=== PATIENT | female | born 1970 | race Caucasian/White ===

== ENCOUNTER → 2016-05-17 | Outpatient (CLI) | payer OTHER ==
--- NOTE | 2016-05-19 11:35 | MM ---
Reason for exam: screening (asymptomatic). Last mammogram was performed 2 years and 6 months ago. History: Family history of breast cancer in maternal aunt at age 38. Physical Findings: A clinical breast exam by your physician is recommended on an annual basis and results should be correlated with mammographic findings. MG Screening Mammo w CAD Bilateral CC and MLO view(s) were taken. Prior study comparison: November 08, 2013, bilateral MG screening mammo w CAD. November 06, 2005, bilateral screening mammogram w/CAD. The breast tissue is almost entirely fat. There is no discrete abnormality. ASSESSMENT: Negative, BI-RAD 1 RECOMMENDATION: Routine screening mammogram of both breasts in 1 year.
== END | disposition home or self-care (01) ==
LOC: RADMAMWWP 08:04
PROVIDERS: ATTEND Family Medicine
DX: Z12.31 Encounter for screening mammogram for malignant neoplasm of breast (principal)

== ENCOUNTER → 2016-08-25 | Outpatient (CLI) | payer OTHER ==
--- NOTE | 2016-08-25 08:11 | XR ---
EXAMINATION TYPE: XR tibia fibula RT DATE OF EXAM: 08/25/2016 COMPARISON: NONE HISTORY: Pain and numbness TECHNIQUE: Two views are submitted. FINDINGS: The osseous structures are intact. The joint spaces are preserved. IMPRESSION: 1. No acute osseous abnormality.
--- NOTE | 2016-08-25 08:14 | XR ---
EXAMINATION TYPE: XR foot complete RT DATE OF EXAM: 08/25/2016 COMPARISON: NONE HISTORY: Pain and numbness TECHNIQUE: Three views are submitted. FINDINGS: The osseous structures are intact and mild arthropathy first MTP joint. Calcaneal spur noted. There i s concern for ligamentous or tendinous injury correlate with MRI. There is no acute fracture or disl ocation. IMPRESSION: 1. Plantar calcaneal spur.
== END | disposition home or self-care (01) ==
LOC: RADXRMAIN 07:47
PROVIDERS: ATTEND Family Medicine
DX: M77.31 Calcaneal spur, right foot (principal); M79.671 Pain in right foot

== ENCOUNTER 2016-10-08 00:23 | Emergency (ER) | payer OTHER ==
[2016-10-08 00:31] VITALS: BP 139/80; PULSE 70; RESP 18; TEMP 97.8
[2016-10-08] MEDS ORDERED: TOPICAL SKIN ADHESIVE 1 EACH AMP TOPICAL ONE (00:38)
[2016-10-08] MEDS ORDERED: DIPH,PERTUS(ACELL)TETVAC-LF 0.5 ML VIAL IM ONE (00:38)
--- NOTE | 2016-10-08 00:47 | ED ---
General Adult HPI - General Chief complaint: Wound/Laceration Stated complaint: Thumb Lac Time Seen by Provider: 10/08/16 00:35 Source: patient, RN notes reviewed Mode of arrival: ambulatory Limitations: no limitations - History of Present Illness Initial comments: Patient 46-year-old female who presents emergency room today with chief complaint of laceration to the right thumb. Does admit that she was trying to clean off a ceramic birdhouse to glue and area when it accidentally slipped and cut her posterior aspect of the right thumb. Patient states unsure of her tetanus status. She is close to needing 1. Patient states she has full range of motion. Denies any other complaints associated symptoms. Patient denies any recent fever, chills, shortness of breath, chest pain, back pain, abdominal pain , nausea or vomiting, numbness or tingling, dysuria or hematuria, constipation or diarrhea, headaches or visual changes, or any other complaints. - Related Data Home Medications Medication Instructions Recorded Confirmed ALPRAZolam [Xanax] 0.5 mg PO DAILY PRN 04/25/14 10/08/16 Cholecalciferol (Vitamin D3) 5,000 unit PO DAILY 04/25/14 10/08/16 [Vitamin D3] Riboflavin [Vitamin B-2] 50 mg PO BID 04/25/14 10/08/16 Sertraline [Zoloft] 150 mg PO DAILY 04/25/14 10/08/16 buPROPion SR [Wellbutrin Sr] 150 mg PO BID 04/25/14 10/08/16 Ibuprofen [Motrin] 600 mg PO Q6HR PRN 10/08/16 10/08/16 Allergies Allergy/AdvReac Type Severity Reaction Status Date / Time No Known Allergies Allergy Verified 10/08/16 00:31 Review of Systems ROS Statement: Those systems with pertinent positive or pertinent negative responses have been documented in the HPI. ROS Other: All systems not noted in ROS Statement are negative. Past Medical History Additional Past Medical History / Comment(s): depression/anxiety History of Any Multi-Drug Resistant Organisms: None Reported Past Surgical History: Ablation, Tubal Ligation Additional Past Surgical History / Comment(s): gastric bypass 1995 Past Psychological History: Anxiety, Depression Smoking Status: Never smoker Past Alcohol Use History: Occasional Past Drug Use History: None Reported General Exam - General Exam Comments Initial Comments: General: The patient is awake and alert, in no distress, and does not appear acutely ill. Neck: The neck is supple, there is no tenderness or JVD. Cardiovascular: There is a regular rate and rhythm. No murmur, rub or gallop is appreciated. Respiratory: Lungs are clear to auscultation, respirations are non-labored, breath sounds are equal. No wheezes, stridor, rales, or rhonchi. Musculoskeletal: Full range of motion. Sensation intact. Pulses equal bilaterally 2+. Strength 5/5. Neurological: A&O x 3. CN II-XII intact, There are no obvious motor or sensory deficits. Coordination appears grossly intact. Speech is normal. Skin: 1 cm linear laceration running horizontally to the posterior aspect of right thumb just distal to the DIP joint. Psychiatric: Normal mood and affect. Limitations: no limitations Course Vital Signs 10/08/16 00:28 Temperature 97.8 F Pulse Rate 70 Respiratory 18 Rate Blood Pressure 139/80 O2 Sat by Pulse 100 Oximetry Medical Decision Making - Medical Decision Making Patient's wound irrigated and cleaned here in the emergency room. Wound was approximated and closed with Dermabond. Patient tolerated procedure well. Patient's tetanus updated. Patient advised watch for any signs of infection return for any other concerns. Disposition Clinical Impression: Laceration Disposition: HOME SELF-CARE Condition: Good Instructions: Laceration (ED) Additional Instructions: Please allow the glue to fall off on its own over the next 2-5 days. Please watch for any signs of infection which may include increased pain, swelling, redness, fever or chills. Please return to emergency room for new concerns. Referrals: Asiya Story DO [Primary Care Provider] - 1-2 days Time of Disposition: 00:46
== END 2016-10-08 01:05 | disposition home or self-care (01) ==
LOC: EC 00:23
DX: S61.011A Laceration without foreign body of right thumb without damage to nail, initial encounter (principal); F41.9 Anxiety disorder, unspecified; F32.9 Major depressive disorder, single episode, unspecified; Z23 Encounter for immunization; W26.8XXA Contact with other sharp object(s), not elsewhere classified, initial encounter; Y92.009 Unspecified place in unspecified non-institutional (private) residence as the place of occurrence of the external cause
CPT/HCPCS: 12001; 90471; 90715; 99282

== ENCOUNTER → 2018-09-23 | Outpatient (CLI) | payer OTHER ==
--- NOTE | 2018-09-25 15:41 | MR ---
EXAMINATION TYPE: MR knee LT wo con DATE OF EXAM: 09/23/2018 COMPARISON: Outside radiographs 08/16/2018 HISTORY: 40-year-old female left knee pain Pain in left knee TECHNIQUE: Multiplanar, multisequence imaging of the left knee is performed without IV contrast. FINDINGS: ACL, PCL, MCL, and LCL complex are intact. There is an oblique tear of the posterior horn extending to the body of the medial meniscus. Mild dif fuse thinning of medial compartment articular cartilage with moderate irregular cartilage loss along the mid weightbearing aspect of the joint. There is an inner margin of the tear at the junction of the posterior horn and body of the lateral me niscus. Mild diffuse thinning of articular cartilage volume weight moderate cartilage irregularity al yoan the mid weightbearing aspect. Mild diffuse thinning of patellofemoral compartment articular cartilage with focal areas of moderate irregular cartilage loss along both medial and lateral patellar facets as well as the central portion of the trochlea. Extensor mechanism is intact. Small to moderate knee joint effusion. No sizable Valadez's cyst. Trace e keven Valadez's cyst formation is suggested given minimal fluid in this location. Normal popliteal artery anatomy. Mild generalized muscular atrophy. No suspicious bone marrow replace ment. IMPRESSION: 1. Oblique tear posterior horn extending into the body of the medial meniscus. 2. Additional oblique tear at the junction of the posterior horn and body of the lateral meniscus. 3. Mild tricompartmental osteoarthrosis.
== END | disposition home or self-care (01) ==
LOC: RADMRIMAIN 07:39
PROVIDERS: ATTEND Orthopaedic Surgery
DX: S83.242A Other tear of medial meniscus, current injury, left knee, initial encounter (principal); S83.282A Other tear of lateral meniscus, current injury, left knee, initial encounter; M17.12 Unilateral primary osteoarthritis, left knee

== ENCOUNTER → 2018-10-21 | Outpatient (CLI) | payer OTHER ==
[2018-10-21 13:51] LABS: Basophils % (A) 0 %; Eosinophils # (A) 0.1 k/uL (0-0.7); Eosinophils % (A) 2 %; HCT 39.4 % (34.0-46.0); HGB 12.8 gm/dL (11.4-16.0); Lymphocytes # (A) 1.8 k/uL (1.0-4.8); Lymphocytes % (A) 31 %; MCH 30.2 pg (25.0-35.0); MCHC 32.4 g/dL (31.0-37.0); MCV 93.4 fL (80.0-100.0); Mean Platelet Volume 8.4; Monocytes # (A) 0.3 k/uL (0-1.0); Monocytes % (A) 6 %; Neutrophils # (A) 3.3 k/uL (1.3-7.7); Neutrophils % (A) 59 %; Platelet Count 183 k/uL (150-450); RBC 4.22 m/uL (3.80-5.40); WBC 5.7 k/uL (3.8-10.6)
== END | disposition home or self-care (01) ==
LOC: LABPAT 12:33
PROVIDERS: ATTEND Orthopaedic Surgery
DX: Z01.812 Encounter for preprocedural laboratory examination (principal); M23.92 Unspecified internal derangement of left knee
CPT/HCPCS: 80051; 85025

== ENCOUNTER → 2018-11-05 | Day surgery (SDC) | payer OTHER ==
[2018-11-01 11:52] VITALS: BMI 32.9
--- NOTE | 2018-11-04 10:13 | HP ---
HISTORY AND PHYSICAL CHIEF COMPLAINT: Left knee pain. HISTORY OF PRESENT ILLNESS: The patient is a 48-year-old [employer] who presents with progressive left knee pain for the past 6 months. She notes giving way and locking symptoms. She notes the whole knee is sore. She has tried medications and an injection with only partial temporary relief. She notes it does limit her activities. PAST MEDICAL HISTORY: Significant for depression and hypothyroidism. PAST SURGICAL HISTORY: Significant for left knee arthroscopy x2, appendectomy, tubal ligation. CURRENT MEDICATIONS: 1. Levothyroxine. 2. Wellbutrin. ALLERGIES: She denies drug allergies. FAMILY HISTORY: Family history is significant for cancer. SOCIAL HISTORY: Negative for current tobacco or alcohol use. REVIEW OF SYSTEMS: Sixteen-point review of systems otherwise reviewed and is noncontributory. PHYSICAL EXAMINATION: On examination, the patient is approximately 5 feet 7 inches, 201 foot 7, 201 pounds of endomorphic habitus. HEENT exam is nonfocal. Neck is supple. She has painless passive motion of her left hip. Straight leg raise is negative. Active motion left knee -12 to 115 degrees of flexion. She has a mild effusion. She is tender about the medial greater than lateral joint line. Collaterals are stable, Mark is negative, [place]'s elicits medial pain. Her distal neurovascular exam appears intact in the left lower extremity. MRI report 09/23/2018, left knee shows a posterior medial and posterior lateral meniscal tear. IMPRESSION: Internal derangement left knee with symptomatic medial and lateral meniscal tears. RECOMMENDATIONS: I talked to the patient at length regarding her condition and treatment options. At this point, she is having significant pain and mechanical symptoms despite conservative measures. After thorough discussion, she opts to proceed with surgery. We will plan to proceed with arthroscopic evaluation with possible partial medial and lateral meniscectomy. We will likely perform that as an outpatient procedure. MMODL / IJN: [id number] /
[~2018-11-05] MED LIST: DEXAMETHASONE SOD PHOSPHATE 10 MG/ML 1 ML VIAL IV ONE; EPINEPHrine (PF) 1 ML in SODIUM CHLORIDE 0.9% IRRIGATIO 3,000 ML IRRIGATION ONE; HYDROmorphone (PF) 1 MG/ML ONE; KETOROLAC 30 MG/ML 1 ML VIAL IVP ONE; LACTATED RINGERS 1,000 ML IV SCH; LIDOCAINE 1% 20 ML VIAL (10MG/ML) FOR IV START INTRADERMA ONE; LIDOCAINE 1% 20 ML VIAL (10MG/ML) FOR IV START INTRADERMA PRN; LIDOCAINE 1% INJ 10MG/ML (20 ML MDV) ONE; MIDAZOLAM 2 MG/2 ML VIAL IV PRN; PROPOFOL 10 MG/ML 20 ML VIAL IV ONE; SCOPOLAMINE 1.5MG/72HR PATCH TRANSDERM ONE; fentaNYL (PF) 50 MCG/ML 2 ML AMP ONE
[2018-11-05 07:21] VITALS: RESP 16
[2018-11-05] MEDS: ONDANSETRON 4 MG/2 ML VIAL IVP ONE ×2 (07:46→09:02)
--- NOTE | 2018-11-05 08:48 | P.OP ---
Date of Procedure: 11/05/18 Preoperative Diagnosis: Left knee internal derangement Postoperative Diagnosis: Left knee posterior medial meniscal tear/posterior lateral meniscal tear/grade 3 chondral injury distal medial portion medial femoral condyle Procedure(s) Performed: Left knee arthroscopic partial medial meniscectomy/partial lateral meniscectomy/microfracture medial femoral condyle Anesthesia: MANUELA Surgeon: Krishna Virgen Estimated Blood Loss (ml): 10 Pathology: none sent Condition: stable Disposition: PACU Indications for Procedure: The patient's a 48-year-old female who presents with progressive left knee pain and mechanical symptoms despite conservative measures. A discussion of the risks and benefits of operative intervention versus continued conservative measures was made with the patient. She opted to proceed with surgery. Operative risks to include infection, neurovascular injury, development of blood clots, possible incomplete resolution of symptoms, possible worsening of symptoms and need for subsequent procedures was discussed. Informed consent was obtained. Operative Findings: As below Description of Procedure: The patient was brought to the operating room, and after induction of general anesthesia examined the left knee. Collaterals were stable, Mark was negative, and posterior drawer was negative. The left lower extremity was prepped and draped in a normal fashion. A superior lateral portal was made through a 3 mm skin incision superior and lateral to the patella. This was used for outflow. A lateral portal was made through a 5 mm vertical skin incision lateral to the patella tendon above the joint line. Diagnostic arthroscopy was performed. On inspection of the medial compartment, a longitudinal tear involving the posterior horn of the medial meniscus in the white-white junction was noted. This was debrided back to stable base with straight baskets and a motorized shaver. A grade 3 chondral injury was noted involving the distal medial portion of the medial femoral condyle. Microfracture was performed with a chondral awl reaching the subchondral surface down to the bone marrow elements. On inspection of the notch, the anterior cruciate ligament appeared to be intact. On inspection of the lateral compartment and oblique tear involving the posterior horn of the lateral meniscus in the white-white junction was noted. This was debrided back to stable base with straight baskets and motorized shaver. On inspection of the patellofemoral articulation there were diffuse grade 2 chondral changes however no loose chondral fragments. The gutters were clear debris. The knee was then thoroughly irrigated. The portals were closed with Steri-Strips. A sterile dressing was applied in addition to a compression stocking. The patient was awoken from general anesthesia and t ransferred to recovery room in good condition. Blood loss was estimated at 10 mL. No complications were incurred.
[2018-11-05 08:52] VITALS: TEMP 96.9
[2018-11-05] MEDS: HYDROmorphone 0.5 MG/0.5 ML SYRINGE IVP PRN ×4 (09:02→09:22)
[2018-11-05 11:31] VITALS: BP 109/56; PULSE 62
== END | disposition home or self-care (01) ==
LOC: OR 06:55
PROVIDERS: ATTEND Orthopaedic Surgery
DX: S83.282A Other tear of lateral meniscus, current injury, left knee, initial encounter (principal); S83.242A Other tear of medial meniscus, current injury, left knee, initial encounter; S83.32XA Tear of articular cartilage of left knee, current, initial encounter; X58.XXXA Exposure to other specified factors, initial encounter; F32.9 Major depressive disorder, single episode, unspecified; E03.9 Hypothyroidism, unspecified; F41.9 Anxiety disorder, unspecified; E66.9 Obesity, unspecified; Z68.32 Body mass index [BMI] 32.0-32.9, adult; Z79.890 Hormone replacement therapy; Z79.899 Other long term (current) drug therapy; Z98.51 Tubal ligation status; Z90.49 Acquired absence of other specified parts of digestive tract; Z80.9 Family history of malignant neoplasm, unspecified
CPT/HCPCS: 29880; 29879; J1100; J0690; J2405; J0171; J2001; J3010; J1885; J1170 ×2; J2704

== ENCOUNTER → 2019-08-18 | Outpatient (CLI) | payer MEDICAID ==
[2019-08-18 18:22] LABS: T4, Free (Free Thyroxine) 1.1 ng/dL (0.80-1.80)
== END | disposition home or self-care (01) ==
LOC: LABWHC1 08:13
PROVIDERS: ATTEND Family Medicine
DX: E03.9 Hypothyroidism, unspecified (principal)
CPT/HCPCS: 36415; 82306; 83540; 84439; 84443

== ENCOUNTER → 2019-10-24 | Outpatient (CLI) | payer MEDICAID ==
[2019-10-24 08:33] LABS: Basophils % (A) 0 %; Eosinophils # (A) 0.1 k/uL (0-0.7); Eosinophils % (A) 1 %; HCT 42.5 % (34.0-46.0); HGB 13.8 gm/dL (11.4-16.0); Lymphocytes # (A) 1.4 k/uL (1.0-4.8); Lymphocytes % (A) 28 %; MCHC 32.6 g/dL (31.0-37.0); Mean Platelet Volume 9.3; Monocytes # (A) 0.3 k/uL (0-1.0); Monocytes % (A) 5 %; Neutrophils # (A) 3.3 k/uL (1.3-7.7); Neutrophils % (A) 64 %; Platelet Count 186 k/uL (150-450); RBC 4.62 m/uL (3.80-5.40); WBC 5.1 k/uL (3.8-10.6)
[2019-10-24 16:31] LABS: Albumin 4.3 g/dL (3.80-4.90); Albumin/Globulin Ratio 2.15 (1.60-3.17); Anion Gap 6.6 mmol/L (4.00-12.00); BUN/Creat Ratio 26.67 Ratio (12.00-20.00); Calcium 9.2 mg/dL (8.7-10.3); Carbon Dioxide 26.4 mmol/L (21.6-31.8); Chol/HDL Ratio 2.53; LDL Cholesterol,Calculated 55.2 mg/dL (0.0-131.0); Potassium 4.4 mmol/L (3.5-5.5); Total Bilirubin 0.4 mg/dL (0.2-1.2); Total Protein 6.3 g/dL (6.2-8.2); VLDL Calculation 10.8 mg/dL (5.00-40.00)
== END | disposition home or self-care (01) ==
LOC: LABWHC1 07:16
PROVIDERS: ATTEND Family Medicine
DX: Z00.00 Encounter for general adult medical examination without abnormal findings (principal); E03.9 Hypothyroidism, unspecified
CPT/HCPCS: 36415; 80053; 80061; 82306; 82607; 85025

== ENCOUNTER → 2019-10-25 | Outpatient (CLI) | payer MEDICAID ==
--- NOTE | 2019-10-27 11:40 | MM ---
Reason for exam: screening (asymptomatic). Last mammogram was performed 1 year and 5 months ago. History: Family history of breast cancer in maternal aunt at age 38. Physical Findings: A clinical breast exam by your physician is recommended on an annual basis and results should be correlated with mammographic findings. MG 3D Screening Mammo W/Cad Bilateral CC and MLO view(s) were taken. Prior study comparison: June 07, 2018, bilateral MG screening mammo w CAD. May 17, 2016, bilateral MG screening mammo w CAD. There are scattered fibroglandular densities. No significant changes when compared with prior studies. ASSESSMENT: Negative, BI-RAD 1 RECOMMENDATION: Routine screening mammogram of both breasts in 1 year.
== END | disposition home or self-care (01) ==
LOC: RADMAMWWP 16:15
PROVIDERS: ATTEND Family Medicine
DX: Z12.31 Encounter for screening mammogram for malignant neoplasm of breast (principal)
CPT/HCPCS: 77063; 77067

== ENCOUNTER → 2020-04-11 | Outpatient (CLI) | payer OTHER ==
--- NOTE | 2020-04-11 17:20 | XR ---
EXAMINATION TYPE: XR hand complete LT DATE OF EXAM: 04/11/2020 COMPARISON: NONE HISTORY: Pain TECHNIQUE: 3 views FINDINGS: Metacarpals are intact. I see no fracture nor dislocation. Joint spaces are normal. There a re no erosions. IMPRESSION: Negative left hand exam. No fracture.
--- NOTE | 2020-04-11 17:21 | XR ---
EXAMINATION TYPE: XR wrist complete LT DATE OF EXAM: 04/11/2020 COMPARISON: NONE HISTORY: Pain TECHNIQUE: 4 views FINDINGS: The carpal bones appear intact. There is developmentally short ulna. Radiocarpal joint is i ntact. I see no fracture nor dislocation. There is slight narrowing of the radiocarpal joint space. IMPRESSION: No acute abnormality of the left wrist.
== END | disposition home or self-care (01) ==
LOC: RAD 16:55
PROVIDERS: ATTEND Emergency Medicine
DX: S60.222A Contusion of left hand, initial encounter (principal); S60.212A Contusion of left wrist, initial encounter

== ENCOUNTER → 2020-04-13 | Outpatient (CLI) | payer OTHER ==
--- NOTE | 2020-04-13 10:41 | XR ---
EXAMINATION TYPE: XR shoulder complete LT DATE OF EXAM: 04/13/2020 CLINICAL HISTORY: pain COMPARISON: NONE TECHNIQUE: Three views of the left shoulder are obtained. FINDINGS: There is no acute fracture/dislocation evident. The acromioclavicular and glenohumeral dominguez int spaces appear within normal limits. The visualized ribs are intact and unremarkable. IMPRESSION: 1. There is no acute fracture or dislocation. ICD 10 NO FRACTURE, INITIAL EVALUATION
--- NOTE | 2020-04-13 10:41 | XR ---
EXAMINATION TYPE: XR humerus LT DATE OF EXAM: 04/13/2020 CLINICAL HISTORY: pain TECHNIQUE: Frontal and lateral images of the left humerus are obtained. COMPARISON: None. FINDINGS: There is no acute fracture/dislocation evident. The joint spaces appear within normal limi ts. The overlying soft tissue appears unremarkable. IMPRESSION: There is no acute fracture or dislocation. ICD 10 NO FRACTURE, INITIAL EVALUATION
== END | disposition home or self-care (01) ==
LOC: RADXRMAIN 10:02
PROVIDERS: ATTEND Emergency Medicine
DX: S43.402D Unspecified sprain of left shoulder joint, subsequent encounter (principal)

== ENCOUNTER → 2020-06-12 | Outpatient (CLI) | payer OTHER ==
--- NOTE | 2020-06-12 13:14 | XR ---
EXAMINATION TYPE: XR elbow complete 3 views LT, XR wrist complete 4 views LT, XR forearm 2 views LT DATE OF EXAM: 06/12/2020 COMPARISON: Wrist 04/11/2020 HISTORY: 50-year-old female S53.462 S60.212D slip/fall, pain within the elbow and forearm FINDINGS: Left elbow: No acute fracture, subluxation, or dislocation. Normal joint effusion. Alignment is maintained. Forearm: No acute fracture of the radial or ulnar shaft. Left wrist: There is negative ulnar variance noted. [id number] degenerative change at the distal radioulnar joint with joint space narrowing, subchondral sclerosis, and cystic change. Appearance relatively si milar to the prior exam. The radiocarpal and midcarpal compartment otherwise appear intact. No acute fracture, subluxation, or dislocation. IMPRESSION: 1. Left elbow: No acute osseous abnormality. No elbow joint effusion. 2. Forearm: No acute osseous inability seen. 3. Left wrist: [id number] degenerative change at the distal radioulnar joint. No acute osseous abnormality seen.
== END | disposition home or self-care (01) ==
LOC: RADXRMAIN 12:25
PROVIDERS: ATTEND Emergency Medicine
DX: M19.032 Primary osteoarthritis, left wrist (principal); S53.402D Unspecified sprain of left elbow, subsequent encounter

== ENCOUNTER → 2020-06-18 | Outpatient (CLI) | payer OTHER ==
--- NOTE | 2020-06-18 23:17 | MR ---
Result: History: Sprain. Comparison: Left elbow pain status post fall one month ago. Technique: Routine multisequence magnetic resonance imaging examination of the left elbow was perform ed without contrast. Findings: The bone marrow signal is unremarkable. There is no evidence of fracture or dislocation. The distal biceps and distal brachialis tendons are grossly intact. There is mild insertional tendino sis of the triceps tendon, but otherwise intact. There is mild to moderate tendinosis of the common extensor tendon. There is mild irregularity of the radial collateral ligament, compatible prior sprain. There is moderate sized partial thickness chond ral defect overlying the radiocapitellar joint. The common flexor tendon and medial collateral ligament are grossly intact. No significant elbow joint effusion or soft tissue abnormality. The visualized neurovascular bundle i s grossly unremarkable. Impression: Mild to moderate tendinosis of the common extensor tendon, compatible with lateral epicondylitis the appropriate clinical setting. Prior sprain of the radial collateral ligament. Chondromalacia of the radiocapitellar joint.
== END | disposition home or self-care (01) ==
LOC: RADMRIMAIN 20:35
PROVIDERS: ATTEND Emergency Medicine
DX: M94.222 Chondromalacia, left elbow (principal)

== ENCOUNTER → 2021-07-04 | Outpatient (CLI) | payer MEDICAID ==
--- NOTE | 2021-07-05 12:51 | MM ---
Reason for exam: screening (asymptomatic). Last mammogram was performed 1 year and 8 months ago. History: Family history of breast cancer in maternal aunt at age 38. Physical Findings: A clinical breast exam by your physician is recommended on an annual basis and results should be correlated with mammographic findings. MG 3D Screening Mammo W/Cad Bilateral CC and MLO view(s) were taken. Prior study comparison: October 25, 2019, bilateral MG 3d screening mammo w/cad. June 07, 2018, bilateral MG screening mammo w CAD. No significant changes when compared with prior studies. ASSESSMENT: Benign, BI-RAD 2 RECOMMENDATION: Routine screening mammogram of both breasts in 1 year.
== END | disposition home or self-care (01) ==
LOC: RADMAMWWP 07:24
PROVIDERS: ATTEND Family Medicine
DX: Z12.31 Encounter for screening mammogram for malignant neoplasm of breast (principal); Z80.3 Family history of malignant neoplasm of breast
CPT/HCPCS: 77063; 77067

== ENCOUNTER → 2021-08-13 | Outpatient (CLI) | payer MEDICAID ==
[2021-08-13 10:48] LABS: Basophils # (A) 0.02 X 10*3/uL (0.00-0.10); Basophils % (A) 0.3 %; Eosinophils # (A) 0.07 X 10*3/uL (0.04-0.35); Eosinophils % (A) 1.2 %; HCT 42.1 % (37.2-46.3); Immature Grans, Automated 0.5 %; Lymphocytes # (A) 1.49 X 10*3/uL (0.90-5.00); MCHC 30.9 g/dL (32.0-37.0); Mean Platelet Volume 11.5 fL (9.5-12.2); Monocytes # (A) 0.34 X 10*3/uL (0.20-1.00); Monocytes % (A) 5.7 %; NRBC Per 100 WBC 0 /100 WBCS (0.0-0.0); Neutrophils # (A) 4.01 X 10*3/uL (1.80-7.70); Neutrophils % (A) 67.3 %; Platelet Count 244 X 10*3/uL (140-440); RBC 4.48 X 10*6/uL (4.10-5.20); RDW 13.6 % (11.5-14.5); WBC 5.96 X 10*3/uL (4.50-10.00)
[2021-08-13 11:06] LABS: Chol/HDL Ratio 2.69 Ratio; LDL Cholesterol,Calculated 60.2 mg/dL (0.0-131.0); VLDL Calculation 12.02 mg/dL (5.00-40.00)
[2021-08-13 11:56] LABS: ALT 24 U/L (8-44); AST 19 U/L (13-35); African American GFR (CKD) 114.3 (60.0-200.0); Albumin 4.2 g/dL (3.8-4.9); Albumin/Globulin Ratio 1.94 (1.60-3.17); Alkaline Phosphatase 114 U/L (41-126); BUN/Creat Ratio 16.48 Ratio (12.00-20.00); Blood Urea Nitrogen 11.7 mg/dL (9.0-27.0); Calcium 8.9 mg/dL (8.7-10.3); Carbon Dioxide 25.3 mmol/L (20.0-27.5); Chloride 109 mmol/L (96-109); Globulin 2.2 g/dL (1.6-3.3); Glucose 84 mg/dL (70-110); Non-African American GFR(CKD) 98.6 (60.0-200.0); Potassium 4.8 mmol/L (3.5-5.5); Sodium 143 mmol/L (135-145); Total Protein 6.4 g/dL (6.2-8.2)
== END | disposition home or self-care (01) ==
LOC: LABWHC1 07:16
PROVIDERS: ATTEND Family Medicine
DX: E78.5 Hyperlipidemia, unspecified (principal); E05.90 Thyrotoxicosis, unspecified without thyrotoxic crisis or storm; E66.9 Obesity, unspecified
CPT/HCPCS: 36415; 80053; 80061; 82306; 83036; 84439; 84443; 85025

== ENCOUNTER → 2021-10-12 | Outpatient (CLI) | payer MEDICAID ==
[2021-10-12 11:46] LABS: T4, Free (Free Thyroxine) 1.36 ng/dL (0.800-1.800)
== END | disposition home or self-care (01) ==
LOC: LABWHC1 08:26
PROVIDERS: ATTEND Family Medicine
DX: E55.9 Vitamin D deficiency, unspecified (principal); E03.9 Hypothyroidism, unspecified
CPT/HCPCS: 36415; 82306; 84439; 84443

== ENCOUNTER → 2022-06-21 | Outpatient (CLI) | payer MEDICAID ==
[2022-06-21 15:43] LABS: T4, Free (Free Thyroxine) 1.28 ng/dL (0.800-1.800)
== END | disposition home or self-care (01) ==
LOC: LABWHC1 08:19
PROVIDERS: ATTEND Family Medicine
DX: E03.9 Hypothyroidism, unspecified (principal); D55.9 Anemia due to enzyme disorder, unspecified
CPT/HCPCS: 36415; 82306; 83970; 84439; 84443

== ENCOUNTER → 2022-08-01 | Outpatient (CLI) | payer MEDICAID ==
--- NOTE | 2022-08-02 06:05 | CT ---
EXAMINATION TYPE: CT brain w con DATE OF EXAM: 08/01/2022 COMPARISON: None. HISTORY: Headaches in the posterior cranium/neck. Pt gets nauseated and sees white spots with them. CT DLP: 1126.5 mGycm Automated exposure control for dose reduction was used. CONTRAST: CT scan of the head is performed with IV Contrast, patient injected with 100cc mL of Isovue 300. FINDINGS: There is no abnormal enhancing mass or midline shift identified. The ventricles and sulci are within normal limits in size. Carmona-white matter differentiation is maintained. The globes are intact and th e visualized sinuses are clear. Low-lying cerebellar tonsils extend 8 mm into foramen magnum sagittal image 28. 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 No obstructive h ydrocephalus. Advise neurosurgical referral.
== END | disposition home or self-care (01) ==
LOC: RADCTMAIN 18:19
PROVIDERS: ATTEND Family Medicine
DX: G93.5 Compression of brain (principal); R51.9 Headache, unspecified
CPT/HCPCS: 70460; Q9967

== ENCOUNTER → 2022-08-12 | Outpatient (CLI) | payer MEDICAID ==
--- NOTE | 2022-08-13 10:25 | MM ---
Reason for Exam: Screening (asymptomatic). Last mammogram was performed 1 year(s) and 1 month(s) ago. Patient History: Menarche at age 11. First Full-Term at age 30. Late child-bearing (after 30). Maternal aunt had breast cancer, age 38. Risk Values: Tyesha 5 year model risk: 1.6%. NCI Lifetime model risk: 12.8%. Prior Study Comparison: 06/07/2018 Bilateral Screening Mammogram, [facility]. 10/25/2019 Bilateral Screening Mammogram, [facility]. 07/04/2021 Bilateral Screening Mammogram, [facility]. Tissue Density: There are scattered fibroglandular densities. Findings: Analyzed By CAD. There is no suspicious group of microcalcifications or new suspicious mass in either breast. Overall Assessment: Negative, BI-RAD 1 Management: Screening Mammogram of both breasts in 1 year. . Patient should continue monthly self-breast exams. A clinical breast exam by your physician is recommended on an annual basis. This exam should not preclude additional follow-up of suspicious palpable abnormalities. Note on Tyesha scores and lifetime risk: 1. A Tyesha score greater than 3% is considered moderate risk. If this is the case, consider specialist referral to assess eligibility for a risk reducing agent. 2. If overall lifetime risk for the development of breast cancer is 20% or higher, the patient may qualify for future screening with alternating mammogram and breast MRI. Electronically signed and approved by: Alexander Bertrand M.D.
== END | disposition home or self-care (01) ==
LOC: RADMAMWWP 09:17
PROVIDERS: ATTEND Family Medicine
DX: Z12.31 Encounter for screening mammogram for malignant neoplasm of breast (principal); Z80.3 Family history of malignant neoplasm of breast
CPT/HCPCS: 77063; 77067

== ENCOUNTER → 2023-04-28 | Outpatient (CLI) | payer MEDICAID ==
--- NOTE | 2023-04-29 12:47 | MR ---
EXAMINATION TYPE: MR cervical spine wo/w con DATE OF EXAM: 04/28/2023 COMPARISON: NONE HISTORY: 53-year-old female Headaches, post Chiari surgery Technique: Multiplanar, multisequence images of the cervical spine were obtained before and after adm inistration of 9 mL intravenous Gadavist gadolinium contrast. FINDINGS: Status post posterior occipital decompression surgery. Additional resection posterior arch of C1 and secondary enlargement of the foramen magnum region. There is now prominent retrocerebellar CSF signal . There is also apparent fluid posteriorly outside of the dura measuring 5.6 cm craniocaudal by 0.9 c m AP by up to 3.1 cm wide. Mild degenerative intervertebral disc desiccation throughout the cervical spine. No large focal disc herniation or significant spinal canal stenosis. No suspicious bone marrow replacement. Normal course, caliber, signal intensity of the cervical spinal cord. Scattered mild uncovertebral joint arthropathy. At C2-C3, this results in mild bilateral neuroforaminal stenosis. At C5-C6, mild left neuroforaminal stenosis. No abnormal enhancement within the spinal canal. IMPRESSION: 1. Occipital and suboccipital decompression surgery. There is secondary enlargement of the CSF space here without any abnormal crowding. However, there is CSF signal which appears to extend posteriorly beyond the dura measuring 5.6 cm craniocaudal by 3.1 cm wide by 0.9 cm thick that could represent a s mall meningocele. Refer to sagittal image 8. 2. No focal disc herniation or significant spinal canal or neuroforaminal stenosis.
== END | disposition home or self-care (01) ==
LOC: RADMRIMAIN 12:47
PROVIDERS: ATTEND Neurological Surgery
DX: G93.5 Compression of brain (principal); R51.9 Headache, unspecified; Z98.890 Other specified postprocedural states
CPT/HCPCS: 72156; A9585

== ENCOUNTER → 2023-08-12 | Outpatient (CLI) | payer MEDICAID ==
[2023-08-12 14:50] LABS: Basophils # (A) 0.02 X 10*3/uL (0.00-0.10); Basophils % (A) 0.4 %; Eosinophils # (A) 0.07 X 10*3/uL (0.04-0.35); Eosinophils % (A) 1.3 %; HCT 39.6 % (37.2-46.3); HGB 12.3 g/dL (12.0-15.0); Lymphocytes # (A) 1.44 X 10*3/uL (0.90-5.00); Lymphocytes % (A) 27.3 %; MCH 29.3 pg (27.0-32.0); MCHC 31.1 g/dL (32.0-37.0); MCV 94.3 FL (80.0-97.0); Mean Platelet Volume 11.7 FL (9.5-12.2); Monocytes # (A) 0.47 X 10*3/uL (0.20-1.00); Monocytes % (A) 8.9 %; NRBC Per 100 WBC 0 X 10*3/uL (0.00-0.01); Neutrophils # (A) 3.26 X 10*3/uL (1.80-7.70); Neutrophils % (A) 61.9 %; Platelet Count 210 X 10*3/uL (140-440); RDW 14.1 % (11.5-14.5); WBC 5.27 X 10*3/uL (4.50-10.00)
[2023-08-12 15:20] LABS: ALT 50 U/L (8-44); AST 33 U/L (13-35); Albumin 4.1 g/dL (3.8-4.9); Albumin/Globulin Ratio 2.05 Ratio (1.60-3.17); Alkaline Phosphatase 117 U/L (41-126); BUN/Creat Ratio 16.71 Ratio (12.00-20.00); Blood Urea Nitrogen 11.7 mg/dL (9.0-27.0); Calcium 9.1 mg/dL (8.7-10.3); Carbon Dioxide 22.2 mmol/L (21.6-31.8); Chloride 109 mmol/L (96-109); Glucose 81 mg/dL (70-110); LDL Cholesterol,Calculated 44.2 mg/dL (0.0-131.0); Magnesium 1.9 mg/dL (1.5-2.4); Phosphorus 3.8 mg/dL (2.4-5.1); Sodium 141 mmol/L (135-145); Total Bilirubin 0.4 mg/dL (0.3-1.2); Total Protein 6.1 g/dL (6.2-8.2); VLDL Calculation 8.66 mg/dL (5.00-40.00)
== END | disposition home or self-care (01) ==
LOC: LABWHC1 07:52
PROVIDERS: ATTEND Family Medicine
DX: E03.9 Hypothyroidism, unspecified (principal); F41.1 Generalized anxiety disorder; E23.1 Drug-induced hypopituitarism
CPT/HCPCS: 36415; 80053; 80061; 82306; 83735; 83970; 84100; 84443; 85025

== ENCOUNTER → 2023-09-02 | Outpatient (CLI) | payer MEDICAID ==
--- NOTE | 2023-09-07 09:01 | MM ---
Reason for Exam: Screening (asymptomatic). Last mammogram was performed 1 year(s) and 1 month(s) ago. Patient History: Menarche at age 11. First Full-Term at age 30. Late child-bearing (after 30). Maternal aunt had breast cancer, age 38. Risk Values: Tyesha 5 year model risk: 1.7%. NCI Lifetime model risk: 12.6%. Prior Study Comparison: 10/25/2019 Bilateral Screening Mammogram, [facility]. 07/04/2021 Bilateral Screening Mammogram, [facility]. 08/12/2022 Bilateral MG 3D screening mammo w/cad, [facility]. Tissue Density: The breasts are almost entirely fatty. Findings: Analyzed By CAD. Right breast: There is no suspicious group of microcalcifications or new suspicious mass. Left breast: There is no suspicious group of microcalcifications or new suspicious mass. Overall Assessment: Negative, BI-RAD 1 Management: Screening Mammogram of both breasts in [address] [facility] will attempt to contact patient to return for supplemental views and ultrasound if indicated. Patient should continue monthly self-breast exams. A clinical breast exam by your physician is recommended on an annual basis. This exam should not preclude additional follow-up of suspicious palpable abnormalities. Note on Tyesha scores and lifetime risk: 1. A Tyesha score greater than 3% is considered moderate risk. If this is the case, consider specialist referral to assess eligibility for a risk reducing agent. 2. If overall lifetime risk for the development of breast cancer is 20% or higher, the patient may qualify for future screening with alternating mammogram and breast MRI. Electronically signed and approved by: José Antonio Javier DO
== END | disposition home or self-care (01) ==
LOC: RADMAMWWP 07:56
PROVIDERS: ATTEND Family Medicine
DX: Z12.31 Encounter for screening mammogram for malignant neoplasm of breast (principal); Z80.3 Family history of malignant neoplasm of breast
CPT/HCPCS: 77063; 77067

== ENCOUNTER → 2023-09-28 | Outpatient (CLI) | payer MEDICAID ==
[2023-09-28 11:13] LABS: T4, Free (Free Thyroxine) 1.3 ng/dL (0.80-1.80)
== END | disposition home or self-care (01) ==
LOC: LABWHC1 07:29
PROVIDERS: ATTEND Family Medicine
DX: E03.9 Hypothyroidism, unspecified (principal)
CPT/HCPCS: 36415; 84439; 84443

== ENCOUNTER → 2024-06-14 | Outpatient (CLI) | payer MEDICAID ==
--- NOTE | 2024-06-15 08:07 | BD ---
EXAMINATION TYPE: Axial Bone Density DATE OF EXAM: 06/14/2024 CLINICAL HISTORY: 54 years old Female. ICD-10 CODE: Z13.820 ENCOUNTER FOR SCREENING FOR OSTEOPOROSIS , Additional History: Height: 65 Weight: 196.1 FRAX RISK QUESTIONS: Alcohol (3 or more units per day): no Family History (Parent hip fracture): no Glucocorticoids (More than 3mos): no (Ex: prednisone, prednisolone, methylprednisolone, dexamethasone, and hydrocortisone). History of Fracture in Adulthood: hand Secondary Osteoporosis: 1. Type 1 Diabetes: no 2. Hyperthyroidism: no 3. Menopause before 45: yes 4. Malnutrition: no 5. Chronic liver disease: no Rheumatoid Arthritis: no Current Tobacco Use: no RISK FACTORS HISTORY OF: Hip Fracture (Right/Left): no Spine Fracture: no History of Wrist Fracture: RT Wrist When: age 7 Surgery to Spine/Hip(right/left)/Wrist (right/left): no MEDICATIONS: Thyroid Medications: Levothyroxin How Long: past 5 years Osteoporosis Medications:no EXAM MEASUREMENTS: Bone mineral densitometry was performed using the [employer]. Bone mineral density as measured about the Lumbar spine is: ----- L1-L4(G/cm2): 0.992 T Score Values are as follows: ----- L1: -2.3 ----- L2: -1.9 ----- L3: -1.6 ----- L4: -0.8 ----- L1-L4: -1.6 Z Score Values are as follows: ----- L1: -2.4 ----- L2: -2.0 ----- L3: -1.7 ----- L4: -0.9 ----- L1-L4: -1.6 Baseline Study Bone mineral density about the R hip (g/cm2): 0.745 Bone mineral density about the L hip (g/cm2): 0.758 T Score values are as follows: -----R Neck: -2.5 -----L Neck: -2.0 -----R Total: -2.1 -----L Total: -2.0 Z Score values are as follows: -----R Neck: -2.1 -----L Neck: -1.6 -----R Total: -2.0 -----L Total: -1.9 Baseline Study FRAX%s: The graph provided illustrates a 15.4hance for a major osteoporotic fx and a 3.3% chance for the hips probability for fx in 10 years time. IMPRESSION: Osteopenia (T Score between -2.5 and -1). There is slightly increased risk of fracture and the patient may be considered for treatment. Re-Screen 2-5 years. NOTE: T-SCORE=SD OF THE YOUNG ADULT MEAN. [facility], , 06/15/2024 8:05 AM
== END | disposition home or self-care (01) ==
LOC: RADBDWWP 16:00
PROVIDERS: ATTEND Family Medicine
DX: Z13.820 Encounter for screening for osteoporosis (principal); M85.89 Other specified disorders of bone density and structure, multiple sites; E55.9 Vitamin D deficiency, unspecified; Z78.0 Asymptomatic menopausal state
CPT/HCPCS: 77080

== ENCOUNTER → 2024-08-10 | Outpatient (CLI) | payer MEDICAID ==
--- NOTE | 2024-08-10 09:14 | MR ---
EXAMINATION TYPE: MR cervical spine wo/w con DATE OF EXAM: 08/10/2024 6:46 AM COMPARISON: 04/28/2023 CLINICAL INDICATION: Female, 54 years old with history of G93.5 RED OF BRAIN M47.812 SPONDYLOSIS, Head and Neck pain, weakness, Hx of Chiari malformation surgery, TECHNIQUE: Multiplanar, multisequence images of the cervical spine were obtained before and after adm inistration of 8 mL intravenous Gadobutrol gadolinium contrast. IV Contrast: 8 cc Gadobutrol (None if empty) FINDINGS: Postsurgical change suboccipital decompression. The previous posterior fluid collection has resolved. Minimal right paracentral disc bulging C3-C4. Mild intervertebral disc desiccation throughout the cer vical spine. No focal disc herniation or significant spinal canal stenosis. Normal course, caliber, signal intensity of the cervical spinal cord. No suspicious bone marrow replacement. Scattered mild facet and uncovertebral joint arthropathy especially mid to lower cervical spine. [place] ges result in variable mild neuroforaminal narrowing throughout. No prevertebral or paravertebral soft tissue abnormality. No abnormal enhancement within the spinal canal. IMPRESSION: 1. Mild intervertebral disc desiccation redemonstrated. Scattered mild facet/uncovertebral joint arth ropathy. Small right paracentral disc bulge at C3-C4 without spinal canal stenosis. 2. No significant neuroforaminal stenosis. 3. Previous suboccipital surgical decompression. Resolution of the previous posterior fluid collectio n at this site. 4. Normal appearance to the cervical spinal cord. [facility], Workstation: MARIA TERESA-ARLEN, 08/10/2024 9:12 AM
== END | disposition home or self-care (01) ==
LOC: RADMRIMAIN 06:01
PROVIDERS: ATTEND Neurological Surgery
DX: M50.31 Other cervical disc degeneration, high cervical region (principal); G93.5 Compression of brain; M47.812 Spondylosis without myelopathy or radiculopathy, cervical region; Z48.811 Encounter for surgical aftercare following surgery on the nervous system
CPT/HCPCS: 72156; A9585